=== PATIENT | female | born 1955 | race Caucasian/White ===

== ENCOUNTER → 2024-01-08 | Outpatient (CLI) | payer MEDICARE, MEDICAID, SELFPAY ==
[2024-01-08 17:05] LABS: Amphetamine Urine VISTA NEGATIVE (<1000 ng/mL); Barbiturate Urine VISTA POSITIVE (< 200 ng/mL); Benzodiazepine Urine VISTA NEGATIVE (< 200 ng/mL); Cocaine Urine VISTA NEGATIVE (< 300 ng/mL); Ecstacy Urine VISTA POSITIVE (< 500 ng/mL); Methadone Urine VISTA NEGATIVE (< 300 ng/mL); PCP Urine VISTA NEGATIVE (< 25 ng/mL); THC Urine VISTA NEGATIVE (< 50 ng/mL); Vista UDS pH Range 6
== END | disposition home or self-care (01) ==
PROVIDERS: PCP Family Medicine; Referring Provider Anesthesiology; Visit Provider Anesthesiology
DX: F11.20 Opioid dependence, uncomplicated (principal)
CPT/HCPCS: 80307

== ENCOUNTER → 2024-07-06 | Outpatient (CLI) | payer MEDICARE, SELFPAY ==
[2024-07-06 10:34] LABS: Absolute Lymphocyte Count 1.78 X10^3/uL (0.83-4.51); Absolute Neutrophil Count 3.8 X10^3/uL (2.0-7.7); Basophil# 0.05 X10^3/uL; Basophil% 0.8 % (0-1); Eosinophils% 3.1 % (0-5); Hematocrit 40.4 % (37-47); Hemoglobin 13.9 g/dL (12.0-15.0); Lymphocyte # 1.78 X10^3/ul (0.83-4.51); Lymphocyte % 27.5 % (19-41); Mean Corp Hgb Conc 34.4 g/dL (32-36); Mean Corpuscular Hgb 30.3 pg (27.0-32.0); Mean Corpuscular Volume 88.2 fL (81-99); Mean Platelet Vol. 8.6 fl (6.2-12.0); Monocyte# 0.58 X10^3/uL; NRBC Flagged by Analyzer 0 % (0-5); Neutrophil # 3.81 X10^3/uL (2.7-7.7); Neutrophil % 58.8 % (47-70); Platelet Count 265 K/mm3 (150-450); RBC Distribution Width CV 13.3 % (11.6-14.6); Red Blood Count 4.58 M/mm3 (4.2-5.4); White Blood Count 6.5 K/mm3 (4.4-11.0)
[2024-07-06 11:13] LABS: Anion Gap 10 (5-15); BUN 17 mg/dL (4-19); Calcium,Total 9.7 mg/dL (7.6-11.0); Carbon Dioxide 26.9 mmol/L (21.0-32.0); Chloride 102 mmol/L (98-108); Creatinine, Serum 0.99 mg/dL (0.70-1.20); EST Glomerular Filtration Rate 62 (>60); Glucose 101 mg/dL (70-99); HIV Nonreactive (Nonreactive); Magnesium 2.3 mg/dL (1.5-2.2); Potassium 3.9 mmol/L (3.3-5.1); Sodium Level 139 mmol/L (133-145)
[2024-07-07 05:07] LABS: Hepatitis A AB, Total Negative (Negative)
== END | disposition home or self-care (01) ==
LOC: PAVLAB 10:04
PROVIDERS: Anesthesiology; PCP Family Medicine; Referring Provider Orthopaedic Surgery Orthopaedic Surgery of the Spine; Visit Provider Orthopaedic Surgery Orthopaedic Surgery of the Spine
DX: Z01.818 Encounter for other preprocedural examination (principal)
CPT/HCPCS: 36415; 80048; 83735; 85025; 86703; 86708; 86850; 86900; 86901; 87635

== ENCOUNTER → 2024-07-07 | Outpatient (CLI) | payer MEDICARE, SELFPAY ==
[2024-07-07 09:51] LABS: Hepatitis B Surface Antibody Nonreactive; Hepatitis C Antibody Nonreactive (Nonreactive)
[2024-07-07 17:10] LABS: Xtra Tube EP Lab EXTRA TUBE
== END | disposition home or self-care (01) ==
LOC: PAVLAB 08:56
PROVIDERS: PCP Family Medicine; Referring Provider Orthopaedic Surgery Orthopaedic Surgery of the Spine; Visit Provider Orthopaedic Surgery Orthopaedic Surgery of the Spine
DX: Z01.818 Encounter for other preprocedural examination (principal)
CPT/HCPCS: 36415; 86706; 86803; 87081

== ENCOUNTER 2024-07-14 10:13 | Observation (INO) | payer MEDICARE, SELFPAY ==
--- NOTE | 2024-07-06 10:22 | EKG12_ITS ---
Test Reason : PRE OP Blood Pressure : */* mmHG Vent. Rate : 46 BPM Atrial Rate : 46 BPM P-R Int : 174 ms QRS Dur : 72 ms QT Int : 458 ms P-R-T Axes : 54 36 40 degrees QTcB Int : 400 ms Marked sinus bradycardia with Fusion complexes Abnormal ECG Confirmed by MARK LABOY, TRINA ([id number]), assignment editor DC ELENA ([id number]) on 07/07/2024 7:56:26 AM Referred By: Tesfaye Nam Confirmed By: TRINA FLORES MD
--- NOTE | 2024-07-06 18:26 | PAT.ANESEVAL ---
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 When Was Last Pacemaker Check QUESTION #4 FULL TEXT: You/Your Family Experience fever (hyperthermia) with Anesthesia Last Oral Intake Last Oral intake: Last Oral Intake NPO since Meds taken in AM with sips of water? Meds patient instructed to take am of surgery PONV PONV - call center operations manager: PONV - call center operations manager Female Yes 06/21/24 12:39 HX of Motion Sickness No 06/21/24 12:39 HX of N/V After Surgery Yes 06/21/24 12:39 Non-Smoker Yes 06/21/24 12:39 Duration of Surgery greater Yes 06/21/24 12:39 than 60 minutes Number of Risk Factors 4 06/21/24 12:39 PONV Score Severe Risk 06/21/24 12:39 Height & Weight Height & Weight: Anesthesia: Height & Weight Height 5 ft 4 in 05/14/24 10:01 Respiratory Assessment Respiratory Assessment - call center operations manager: Respiratory Tract Infection Hx - call center operations manager Hx Respiratory Tract Infection No 06/21/24 12:39 STOP Sleep Apnea STOP Sleep Apnea - call center operations manager: STOP Sleep Apnea - call center operations manager Hx Hypertension Yes 06/21/24 12:39 Hx Sleep Apnea No 06/21/24 12:39 CPAP BIPAP Do you snore loudly (louder Yes 06/21/24 12:39 than talking or can be heard Do you often feel tired/ No 06/21/24 12:39 fatigued/ sleepy during daytime? Has anyone observed you stop No 06/21/24 12:39 breathing during sleep? STOP Results Positive 06/21/24 12:39 QUESTION #5 FULL TEXT : Do you snore loudly (louder than talking or can be heard through closed doors)? 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 Specify any problems Hx of Preganancy in last 3 No 06/21/24 12:39 Months Nurse Filling Out Transfusion JZOLLINGE 06/21/24 12:39 & Questions: Date: 06/21/24 06/21/24 12:39 Time: 12:43 06/21/24 12:39 Patient unable to answer at this time (ie. confused, unrespo /Reproduction History /Reproductive History - call center operations manager: /Reproductive Hx- call center operations manager Hx Now No 06/21/24 12:39 Gestational Age (in weeks): EDC: Hx Hx Para Hx Section SAB No 06/21/24 12:39 [facility] Medical History Wears glasses High cholesterol Non-smoker Arthritis Restless leg GERD (gastroesophageal reflux disease) Hypertension Depression Chronic pain Home Medications ?Medication ?Instructions ?Recorded ?Last Taken ?Type bupropion HCl 150 mg 24 hr tablet, 150 mg PO QDAY 01/26/24 Unknown History extended release cholecalciferol (vitamin D3) 25 25 mcg PO QDAY 01/26/24 Unknown History mcg (1,000 unit) capsule escitalopram oxalate 20 mg tablet 20 mg PO QDAY 01/26/24 Unknown History hydrochlorothiazide 25 mg tablet 25 mg PO QDAY 01/26/24 Unknown History oxybutynin chloride 5 mg tablet 2.5 mg PO BID 01/26/24 Unknown History pantoprazole 40 mg tablet,delayed 40 mg PO QDAY 01/26/24 Unknown History release ropinirole 0.25 mg tablet 0.25 mg PO QDAY 01/26/24 Unknown History trazodone 100 mg tablet 100 mg PO QHS 01/26/24 Unknown History vitamin B complex 1 cap PO QDAY 01/26/24 Unknown History losartan 100 mg tablet 100 mg PO QAM 05/14/24 Unknown History rosuvastatin 10 mg tablet 10 mg PO QPM 05/14/24 Unknown History erythromycin 5 mg/gram (0.5 %) eye 1 applic ophthalmic (eye) BID 06/21/24 Unknown History ointment buprenorphine HCl 75 mcg buccal 150 mcg buccal Q12H 06/25/24 Unknown History film (Belbuca) Allergy/AdvReac Type Severity Reaction Status Date / Time acetaminophen (From Vicodin) Allergy Hives, Verified 06/25/24 10:04 itching, NV codeine Allergy Hives, NV, Verified 06/25/24 10:04 itching hydrocodone (From Vicodin) Allergy Hives, Verified 06/25/24 10:04 itching, NV aspirin AdvReac Upset Verified 06/25/24 10:04 Stomach oxycodone AdvReac Addiction Verified 06/25/24 10:04 Family History Other Cancer Heart disease Hypertension Surgical History History of neck surgery History of carpal tunnel repair H/O left wrist surgery Social History current occupational status: retired current occupation: Retired. [employer]. Smoking Status: Never smoker alcohol intake: never substance use type: does not use Audit: Pertinent Findings Pertinent Findings EKG Perinent findings: 07/19/2022. Normal sinus rhythm. Stress test pertinent findings: Patient's stress test was equivocal since it did not reach target heart rate. Consult pertinent findings: 07/19/2022. 1. 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 Patient walks 3 miles a day. Her chest pain has improved. Shortness of breath only while climbing stairs now. Stress test was equivocal, having never reached target heart rate. However consider the patient exercised every day without symptoms we will consider a normal stress test. 2. Hypertension?controlled. Recommendation Anesthesia Recommendation Anesthesia recommendation: OPTIMIZED for anesthesia
[2024-07-14] VITALS (19 sets, daily range): BP systolic 98–138; BP diastolic 45–82; PULSE 43–82; RESP 9–18; TEMP 36.1–36.9; O2SAT 90–99; BMI 32.8
[2024-07-14 06:24] LABS: Bedside Glucose 81 mg/dL (74-106)
--- NOTE | 2024-07-14 06:30 | RAD_ITS ---
PROCEDURE: CERV SPINE 2 OR 3 VIEWS 07/14/2024 REASON FOR EXAM: ANTERIOR FUSION C4-5, POSS HARDWARE REMOVAL TECHNIQUE: Fluoro was provided COMPARISON: None FINDINGS: 10.9 seconds, 8 images, 3.23 mGy RAD/Cerv Spine 2 or 3 Views IMPRESSION: Fluoro was provided. Reading Location: [facility]
[2024-07-14] MEDS: Magnesium 1 GM over 15 mins IV (06:56)
[2024-07-14] MEDS: Acetaminophen 500 MG Tablet 1000 MG PO ×3 (06:56→22:20)
[2024-07-14] MEDS: Lactated Ringers 1,000 ML 15 ML IV (06:59)
--- NOTE | 2024-07-14 07:21 | PCM.PRE.AN2 ---
ASA Classification* ASA Classification ASA Classification: 2 Assessment & Plan Anesthesia* Anesthesia Assessment Anesthesia Assessment: Discussed sedation and/or anesthesia options, risks, benefits, and alternatives with patient/parents/legal guardian/POA. Questions invited. The patient/parents/legal guardian/POA seems to understand and agrees to proceed with anesthesia plan. Reviewed the physical assessment, medical history, allergy history and patient home medications list prior to surgery/procedure/anesthetic and documented any changes. Performed airway and anesthesia risk assessments. Anesthesia Type Anesthesia Type: General Anesthesia Focused Assessment* Temperature: 98.4 F Pulse Rate: 43 Blood Pressure: 106/58 Respiratory Rate: 16 Pulse Ox: 98 Airway Assessment Mouth opens: >3 cm Mallampati Score: II Focused Labs Anesthesia Preop lab: CBC WBC 6.5 K/mm3 (4.4-11.0) 07/06/24 10:12 07/06/24 RBC 4.58 M/mm3 (4.2-5.4) 07/06/24 10:12 07/06/24 Hgb 13.9 g/dL (12.0-15.0) 07/06/24 10:12 07/06/24 Hct 40.4 % (37-47) 07/06/24 10:12 07/06/24 Plt Count 265 K/mm3 (150-450) 07/06/24 10:12 07/06/24 CHEMISTRY Potassium 3.9 mmol/L (3.3-5.1) 07/06/24 10:12 07/06/24 Sodium 139 mmol/L (133-145) 07/06/24 10:12 07/06/24 Magnesium 2.3 mg/dL (1.5-2.2) H 07/06/24 10:12 07/06/24 BUN 17 mg/dL (4-19) 07/06/24 10:12 07/06/24 Creatinine 0.99 mg/dL (0.70-1.20) 07/06/24 10:12 07/06/24 Glucose 101 mg/dL (70-99) H 07/06/24 10:12 07/06/24 POC Glucose 81 mg/dL (74-106) 07/14/24 06:06 07/14/24 COAG Pre-Assessment Diagnosis/Proposed Procedure Planned Operative Procedure(s): Anterior cervical disc fusion C4-5, possible removal of hardware Anesthesia History 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 When Was Last Pacemaker Check QUESTION #4 FULL TEXT: You/Your Family Experience fever (hyperthermia) with Anesthesia Last Oral Intake Last Oral intake: Last Oral Intake NPO since 05:00 07/14/24 06:19 Meds taken in AM with sips of Yes 07/14/24 06:19 water? Meds patient instructed to take am of surgery PONV PONV - paper and prints restorer: PONV - paper and prints restorer Female Yes 06/21/24 12:39 HX of Motion Sickness No 06/21/24 12:39 HX of N/V After Surgery Yes 06/21/24 12:39 Non-Smoker Yes 06/21/24 12:39 Duration of Surgery greater Yes 06/21/24 12:39 than 60 minutes Number of Risk Factors 4 06/21/24 12:39 PONV Score Severe Risk 06/21/24 12:39 Height & Weight Height & Weight: Anesthesia: Height & Weight Height 5 ft 4 in 07/14/24 06:19 Weight: 86.9 kg 07/14/24 06:19 Body Mass Index (BMI) 32.8 07/14/24 06:19 Respiratory Assessment Respiratory Assessment - paper and prints restorer: Respiratory Tract Infection Hx - paper and prints restorer Hx Respiratory Tract Infection No 06/21/24 12:39 STOP Sleep Apnea STOP Sleep Apnea - paper and prints restorer: STOP Sleep Apnea - paper and prints restorer Hx Hypertension Yes 06/21/24 12:39 Hx Sleep Apnea No 06/21/24 12:39 CPAP BIPAP Do you snore loudly (louder Yes 06/21/24 12:39 than talking or can be heard Do you often feel tired/ No 06/21/24 12:39 fatigued/ sleepy during daytime? Has anyone observed you stop No 06/21/24 12:39 breathing during sleep? STOP Results Positive 06/21/24 12:39 QUESTION #5 FULL TEXT : Do you snore loudly (louder than talking or can be heard through closed doors)? 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 Specify any problems Hx of Preganancy in last 3 No 06/21/24 12:39 Months Nurse Filling Out Transfusion JZOLLINGE 06/21/24 12:39 & Questions: Date: 06/21/24 06/21/24 12:39 Time: 12:43 06/21/24 12:39 Patient unable to answer at this time (ie. confused, unrespo /Reproduction History /Reproductive History - paper and prints restorer: /Reproductive Hx- paper and prints restorer Hx Now No 06/21/24 12:39 Gestational Age (in weeks): EDC: Hx Hx Para Hx Section SAB No 06/21/24 12:39 Active Medications Active Medications: Current Medications Generic Name Dose Route Start Last Admin Trade Name Freq PRN Reason Stop Dose Admin Acetaminophen 1,000 mg 07/14/24 07:30 07/14/24 06:56 Acetaminophen 500 Mg Tablet PO 07/14/24 07:31 1,000 mg X1 ONE Administration Dexamethasone Sodium Phosphate 8 mg 07/14/24 07:30 Dexamethasone 10 Mg/Ml Vial IV 07/14/24 07:31 X1 ONE Dexamethasone Sodium Phosphate 4 mg 07/14/24 07:30 Dexamethasone 4 Mg/Ml Vial IV 07/14/24 07:31 X1 ONE Cefazolin Sodium 2 gm/ Sodium 110 mls @ 150 mls/hr 07/14/24 07:30 Chloride IV 07/14/24 08:13 PREOP ONE Tranexamic Acid 1,000 mg/ 110 mls @ 440 mls/hr 07/14/24 07:30 Sodium Chloride IV 07/14/24 07:44 X1 ONE Tranexamic Acid 1,000 mg/ 110 mls @ 440 mls/hr 07/14/24 07:30 Sodium Chloride IV 07/14/24 07:44 X1 ONE Magnesium Sulfate 1 gm/ 102 mls @ 408 mls/hr 07/14/24 07:30 07/14/24 06:56 Dextrose IV 07/14/24 07:44 408 mls/hr X1 ONE Administration Lactated Ringer's 1,000 mls @ 15 mls/hr 07/14/24 07:00 07/14/24 06:59 IV 15 mls/hr .Q48H SHAE Administration Insulin Human Lispro 1 - 6 unit 07/14/24 07:30 Insulin Lispro 100 Unit/Ml Insuln.Pen SC Q4H PRN PRN BG>/= 180, SEE PROTOCOL Protocol PFSH Medical History Wears glasses High cholesterol Non-smoker Arthritis Restless leg GERD (gastroesophageal reflux disease) Hypertension Depression Chronic pain Home Medications ?Medication ?Instructions ?Recorded ?Last Taken ?Type bupropion HCl 150 mg 24 hr tablet, 150 mg PO QDAY 01/26/24 07/14/24 History extended release cholecalciferol (vitamin D3) 25 25 mcg PO QDAY 01/26/24 Unknown History mcg (1,000 unit) capsule escitalopram oxalate 20 mg tablet 20 mg PO QDAY 01/26/24 Unknown History hydrochlorothiazide 25 mg tablet 25 mg PO QDAY 01/26/24 Unknown History oxybutynin chloride 5 mg tablet 2.5 mg PO BID 01/26/24 07/14/24 History pantoprazole 40 mg tablet,delayed 40 mg PO QDAY 01/26/24 07/14/24 History release ropinirole 0.25 mg tablet 0.25 mg PO QDAY 01/26/24 07/13/24 History trazodone 100 mg tablet 100 mg PO QHS 01/26/24 Unknown History vitamin B complex 1 cap PO QDAY 01/26/24 Unknown History losartan 100 mg tablet 100 mg PO QAM 05/14/24 07/14/24 History rosuvastatin 10 mg tablet 10 mg PO QPM 05/14/24 Unknown History erythromycin 5 mg/gram (0.5 %) eye 1 applic ophthalmic (eye) BID 06/21/24 Unknown History ointment buprenorphine HCl 75 mcg buccal 150 mcg buccal Q12H 06/25/24 07/13/24 History film (Belbuca) Allergy/AdvReac Type Severity Reaction Status Date / Time acetaminophen (From Vicodin) Allergy Hives, Verified 07/14/24 06:16 itching, NV codeine Allergy Hives, NV, Verified 07/14/24 06:16 itching hydrocodone (From Vicodin) Allergy Hives, Verified 07/14/24 06:16 itching, NV aspirin AdvReac Upset Verified 07/14/24 06:16 Stomach oxycodone AdvReac Addiction Verified 07/14/24 06:16 Family History Other Cancer Heart disease Hypertension Surgical History History of neck surgery History of carpal tunnel repair H/O left wrist surgery Social History current occupational status: retired current occupation: Retired. [employer]. Smoking Status: Former smoker alcohol intake: never substance use type: does not use Review of Systems (Anesthesia) ROS Narrative System reviewed and no additional complaints, except as documented.
--- NOTE | 2024-07-14 07:25 | HP.PCM_ITS ---
History and Physical Date of Admission: 07/14/24 MR#: [id number] Acct: [id number] Name: ITZEL VILLANUEVA Rep #: [id number] : 1955 Provider: Dr. Tesfaye Nam MD Age/Sex: 69/F [place] [facility] [place] Status: Signed Intake Vital Signs 05/14/2509:01 Height 5 ft 4 in Weight: 185 lb BMI 31.7 Intake Visit Reasons: cervical spine Chief Complaint: cervical spine pre-op Accompanied by: Self Is patient in pain?: Yes Pain scale (1-10): 8 Allergies acetaminophen (From Vicodin) Allergy (Verified 06/25/24 10:04) Hives, itching, NVcodeine Allergy (Verified 06/25/24 10:04) Hives, NV, itchinghydrocodone (From Vicodin) Allergy (Verified 06/25/24 10:04) Hives, itching, NVaspirin Adverse Reaction (Verified 06/25/24 10:04) Upset Stomachoxycodone Adverse Reaction (Verified 06/25/24 10:04) Addiction Medications ?Medication ?Instructions ?Recorded ?Confirmed ?Type bupropion HCl 150 mg 24 hr tablet, 150 mg PO QDAY 01/26/24 06/25/24 History extended release cholecalciferol (vitamin D3) 25 25 mcg PO QDAY 01/26/24 06/25/24 History mcg (1,000 unit) capsule escitalopram oxalate 20 mg tablet 20 mg PO QDAY 01/26/24 06/25/24 History hydrochlorothiazide 25 mg tablet 25 mg PO QDAY 01/26/24 06/25/24 History oxybutynin chloride 5 mg tablet 2.5 mg PO BID 01/26/24 06/25/24 History pantoprazole 40 mg tablet,delayed 40 mg PO QDAY 01/26/24 06/25/24 History release ropinirole 0.25 mg tablet 0.25 mg PO QDAY 01/26/24 06/25/24 Histor y trazodone 100 mg tablet 100 mg PO QHS 01/26/24 06/25/24 History vitamin B complex 1 cap PO QDAY 01/26/24 06/25/24 History losartan 100 mg tablet 100 mg PO QAM 05/14/24 06/25/24 History rosuvastatin 10 mg tablet 10 mg PO QPM 05/14/24 06/25/24 History erythromycin 5 mg/gram (0.5 %) eye 1 applic ophthalmic (eye) BID 06/21/24 06/25/24 History ointment buprenorphine HCl 75 mcg buccal 150 mcg buccal Q12H 06/25/24 06/25/24 Hi story film (Belbuca) Have you fallen in the past year?: Yes (June 2024) PFSH Medical History Wears glasses High cholesterol Non-smoker Arthritis Restless leg GERD (gastroesophageal reflux disease) Hypertension Depression Chronic pain Surgical History History of neck surgery History of carpal tunnel repair H/O left wrist surgery Family History Other Cancer Heart disease Hypertension Social History current occupational status: retired current occupation: Retired. [employer]. Smoking Status: Never smoker alcohol intake: never substance use type: does not use HPI cervical spine Details: This documentation accurately reflects the service provided and the decisions made by me, Dr. Tesfaye Nam MD 06/25/24 [id number]. Part of today?s visit was documented by Arlene Day ATC, acting as scribe. ITZEL VILLANUEVA is a 69 year old F here today for cervical spine pre-op for anterior cervical disc fusion C4-5, possible removal of hardware DOS 07/14/2024. Patient rates her pain a 8/10 today and states the pain is getting worse every day. She states she used to have good days and she doesn't have those anymore at all. 05/14/24: ITZEL VILLANUEVA is a 69 year old F here today for cervical spine pain. she would like to discuss surgical options today. Pt. states she has fallen 3 x in the past 2 weeks. She states her SANCHEZ's have become worse. She c/o pain radiating down her left arm to her elbow as well as right. 03/26/24: ITZEL VILLANUEVA is a 68 year old F here today to discuss postponing cervical spine surgery. Pt. states she is no longer having neck pain because the Belbuca is so effective. She is still experiencing some SANCHEZ's but they have also improved. HPI from 02/11/24: ITZEL VILLANUEVA is a 68 year old F here today for MRI review of her cervical spine. She denies any changes. She is now taking buprenorphine for pain. She did start PT today at in [place] and is going to be going 2 times a week for 4 weeks. Says that she feels her balance has continued to decrease. HPI from 01/26/24: ITZEL VILLANUEVA is a 68 year old F here today for posterior neck pain that radiates down right shoulder to elbow. Cervical fusion c5-c7 2 years ago with pain returning about 8-9 months ago. Weakness right arm and hands, will drop things. Says she has pain that goes down her arm to her elbow. Right worse than left. She is right hand dominant. She does get cervical migraines. Unsteady balance or staggering at times which has worsened over the last 2 months, however does she she was unsteady prior to her surgery. Does not tolerate being in same position for more than an hour d/t pain and stiffness or locking up. epidural injection given 01/16/[address] Nunez, upcoming f/u later this week. PT at [facility] in [place] about 5 months ago that helped at first but started to exacerbate pain. MRI cervical and thoracic spine earlier this year at [facility] in [place]. Oxybutynin helpful with bladder control. Occasional bowel incontinence starting about a year ago, attributes to possible IBS. No falls, no diabetes, no blood thinners. Ortho Exam General General: Yes no acute distress Neurologic: Yes alert and Yes oriented x3 Spine SPINE TESTING CERVICAL THORACIC LUMBAR Musculoskeletal Strength 0=absent - 5=normal Details: Physical examination shows a well healed left sided ACDF surgical scar. Neurological exam of the upper extremities shows 5x5 power, pain with shoulder movements. Normal sensations across all dermatomes. Brisk lower extremity reflexes. No midline or paraspinal tenderness. Romberg's positive. Tandem gait shows severe imbalance. 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 Again reviewed prior xrays which shows prior C5-7 ACDF hardware in good position and loss of normal cervical lordosis, with reversal and kyphosis apex at C4-5 disc. C4-5 shows severe disc degeneration w ith osteophytes and mild instability flexion-extension views. 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 Again went through all imaging findings in detail. Patient has recurrence of significant pain along with headaches and also has new onset left upper extremity radiation going up to the elbow which is new since last seen by me. Patient has had epidural injections, but feels that her balance is worsening with time. She has significant myelopathy along with radiculopathy. Again discussed treatment options. Considering progressive nature of myelopathy, recommend surgical intervention. C4-5 ACDF with possible removal of previous hardware was discussed in detail. All risk benefits and alternatives were discussed. The risks include but are not limited to infection, bleeding, injury to nerves and vessels, hematoma formation, need for further surgery, pseudoarthrosis, hardware failure, adjacent segment degeneration, dysphagia, dysphonia, visceral injury, recurrent laryngeal nerve injury, Ricardo syndrome, DVT, pulm embolism, pneumonia, atelectasis, cardiopulmonary event. Patient understands and agrees to proceed with surgery. Consent was signed.
[2024-07-14] MEDS: Cefazolin 2 GM in 0.9% Normal Saline (100mL Bag) 100 ML IV ×3 (07:53→22:56)
[2024-07-14] MEDS: dexAMETHasone 10 MG/ML Vial 8 MG IV (07:54)
[2024-07-14] MEDS: TRANEXAMIC ACID 1,000 MG in 0.9% Normal Saline (100mL Bag) 100 ML 440 MG IV ×2 (08:03→09:39)
--- NOTE | 2024-07-14 10:17 | OP.PCM_ITS ---
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: Yes Bath Design Sales Consultant: Suni Kang Tasks completed by accounting manager assistant controller: Closing, Removing tissue, Implanting device, Hemostasis: Electrocautery and Retracting Type of Anesthesia: General RN Documented Start/Stop Times: Operation Date: 07/14/24 07:30 Case Time Into Pre-Op 07/14/24 05:45 Out of Pre-Op 07/14/24 07:34 Anesthesia Start 07/14/24 07:38 Into Room 07/14/24 07:38 Procedure Start 07/14/24 08:13 Procedure End 07/14/24 10:05 Procedure Start Time: 08:13 Procedure Stop Time: 10:05 Select all DRAINS/GRAFTS/IMPLANTS that apply: Drains, Graft and Implanted device Estimated Blood Loss: 20 cc Specimen collected: No Description of surgery: Preoperative diagnosis: C4-5 spondylolisthesis, disc degeneration with stenosis, radiculomyelopathy, prior C5-7 ACDF Postoperative diagnosis: Same Name of procedure: C4-5 anterior cervical discectomy and fusion with plate instrumentation - Anterior cervical fusion C4-5, CPT code 80041 - Anterior plate instrumentation C4-5, CPT code 05460/59 -C4-5 structural allograft bone with DBX, CPT code 89417 Attending surgeon: Tesfaye Nam M.D. Anesthesia: Gen. endotracheal Estimated blood loss: [] mL Complications: None Instrumentation used: Medtronic [place] Elite plate, LASR corticocancellous block Indications: The patient is a pleasant [] who presented with []. MRI showed []. In order to halt the progression of myelopathy, the patient requested surgical treatment. All risks and benefits of the procedure were explained to the patient. The risks include but are not limited to infection, bleeding, injury to nerves and vessels, vertebral artery injury, spinal cord injury, paralysis, vocal cord paralysis, injury to esophagus, pseudoarthrosis, need for further procedures, adjacent segment degeneration. Procedure: The patient was identified in the preoperative suite using unique patient identifiers. Skin was marked consent was taken and all questions were answered. The patient was then brought back to the operative room and a timeout was performed. General endotracheal anesthesia was given. Intraoperative neuro monitoring leads were applied. The patient was carefully positioned supine on a regular OR table. A lateral view with a C-arm was done to identify the level and to define the incision. The anterior neck was then prepped and draped in the usual fashion. A final timeout was then performed. A transverse skin incision was taken to the left of midline. Subcutaneous tissue was then divided with Bovie. Platysma was identified and cut along the incision with scissors. The fascial interval between the sternocleidomastoid and the larynx was developed. Omohyoid was identified and retracted. The esophagus with the larynx was retracted medially to reach the prevertebral fascia. Marker x-ray was performed with bent spinal needle and disc space and levels were confirmed. Longus coli muscle was elevated on both sides at and above and below [] discs. Self-retaining retractors were then placed. A long handle knife was then used to perform annulotomy at []. Disc fragments were removed with the pituitary. Jackson pins were placed in [] for disc distraction. Curettes and bur was utilized to remove cartilage from the endplates. Discectomy was performed laterally up to the uncovertebral joints. Posterior osteophytes were thinned down with the bur and adequate decompression in the central and foraminal areas were performed and PLL was thinned out. Once the disc space was prepared, trials of various sizes were utilized. Thorough irrigation was given. [] mm LASR cortical cancellous allograft bone large footprint was then fashioned in such a way that concavities were burred out inferiorly and superiorly and half cc of DBX (demineralized bone matrix) was squeezed into the cancellous portion. The graft was then inserted into the [] disc space. The retractors were then repositioned and the procedure was repeated for [] discs with complete discectomy. Graft sizes were [] mm at with large footprint at []. The grafts were found to be in good apposition with good pullout strength. A [] mm Medtronic [place] Elite plate was then fixed to [] with [] mm screws. A lateral x-ray was then taken to check the length of the screws. Both AP and lateral x-rays showed good positioning of plate and screws. The locking mechanism over the screw heads was then turned. Thorough irrigation was again given. Hemostasis was achieved. A [] drain was then inserted. Closure was done with 3-0 Vicryl for the platysma and subcutaneous tissue layers and 4-0 Monocryl for the skin. Closure was done around the drain. Steri-Strips were applied and dressing was done with 4 x 4 gauze and Tegaderm. A cervical collar was then applied. The patient was then woken up from anesthesia extubated and taken to PACU in stable condition. From here, the patient will be transitioned to the floor. Intraoperative neuro monitoring was performed throughout this procedure. Motor evoked potentials were run periodically. All potentials remained at baseline throughout the procedure. I was present for the entire surgery and performed the surgery myself.
--- NOTE | 2024-07-14 10:17 | PCM.OPRPT ---
Procedures Musculoskeletal [id number]: Other Procedure See Report Operative Report (Standard) Operative Information Date of Procedure: 07/14/24 Pre-Operative Diagnosis: C4-5 spondylolisthesis, stenosis, radiculomyelopathy, prior C5-7 fusion Post-Operative Diagnosis: Same Surgery/Procedure Performed: C4-5 ACDF, removal of hardware, exploration of fusion slip cover operator: Yes Shipping And Receiving Operator: Suni Kang Tasks completed by regional administrative assistant: Closing, Removing tissue, Implanting device, Hemostasis: Electrocautery and Retracting Type of Anesthesia: General RN Documented Start/Stop Times: Operation Date: 07/14/24 07:30 Case Time Into Pre-Op 07/14/24 05:45 Out of Pre-Op 07/14/24 07:34 Anesthesia Start 07/14/24 07:38 Into Room 07/14/24 07:38 Procedure Start 07/14/24 08:13 Procedure End 07/14/24 10:05 Procedure Start Time: 08:13 Procedure Stop Time: 10:05 Select all DRAINS/GRAFTS/IMPLANTS that apply: Drains Drain details: Shahzad , Graft Graft details: Structural allograft cortical cancellous strut, DBX and Implanted device Implanted device details: Medtronic [place] Elite plate instrumentation Estimated Blood Loss: 20 cc Specimen collected: No Description of surgery: Preoperative diagnosis: C4-5 spondylolisthesis, disc degeneration with stenosis, radiculomyelopathy, prior C5-7 ACDF Postoperative diagnosis: Same Name of procedure: C4-5 anterior cervical discectomy and fusion with plate instrumentation - Anterior cervical fusion C4-5, CPT code 95365 - Anterior plate instrumentation C4-5, CPT code 56368/59 - Removal of anterior plate instrumentation C5-7, CPT code 03917 -Exploration of anterior C5-7 fusion, CPT code 59996 -C4-5 structural allograft bone with DBX, CPT code 64975 Attending surgeon: Tesfaye Nam M.D. Anesthesia: Gen. endotracheal Estimated blood loss: 30 mL Complications: None Instrumentation used: Medtronic [place] Elite plate, LASR corticocancellous block Indications: The patient is a pleasant 69-year-old lady who presented with neck pain, progressive difficulty with dexterity and balance. Imaging showed prior C5-7 ACDF with plate instrumentation, C4-5 adjacent segment degeneration with spondylolisthesis, disc degeneration, central stenosis with cord indentation without cord signal changes. In order to halt the progression of myelopathy, the patient requested surgical treatment. All risks and benefits of the procedure were explained to the patient. The risks include but are not limited to infection, bleeding, injury to nerves and vessels, vertebral artery injury, spinal cord injury, paralysis, vocal cord paralysis, injury to esophagus, pseudoarthrosis, need for further procedures, adjacent segment degeneration. ENT consult confirmed that both vocal cords are mobile due to history of prior ACDF surgery. Procedure: The patient was identified in the preoperative suite using unique patient identifiers. Skin was marked consent was taken and all questions were answered. The patient was then brought back to the operative room and a timeout was performed. General endotracheal anesthesia was given. Intraoperative neuro monitoring leads were applied. The patient was carefully positioned supine on a regular OR table. A lateral view with a C-arm was done to identify the level and to define the incision. The anterior neck was then prepped and draped in the usual fashion. A final timeout was then performed. A transverse skin incision was taken to the right of midline, as previous surgery was done of the left. Subcutaneous tissue was then divided with Bovie. Platysma was identified and cut along the incision with scissors. The fascial interval between the sternocleidomastoid and the larynx was developed. Omohyoid was identified and retracted. The esophagus with the larynx was retracted medially to reach the prevertebral fascia. Superior edge of the plate was covered with bone, and a bent spinal needle was placed into the area felt to be the C4-5 disc. Marker x-ray was performed with bent spinal needle and disc space and levels were confirmed. Longus coli muscle was elevated on both sides at and above and below C4-7 discs around the plate. Significant prevertebral scarring was noticed over the plate. Bur had to be utilized to remove the bone overgrowth over the superior aspect of the plate. Locking mechanism screw was turned to unlock, and all 6 screws were removed with appropriate instrumentation. The plate was then pried loose with the help of Vazquez. The plate was then removed. The fusion at C5-6 and C6-7 was explored and found to be adequate. Self-retaining retractors were then placed. A long handle knife was then used to perform annulotomy at C4-5. Disc fragments were removed with the pituitary. [place] pins were placed in C4 and C5 for disc distraction. Curettes and bur was utilized to remove cartilage from the endplates. Discectomy was performed laterally up to the uncovertebral joints. Posterior osteophytes were thinned down with the bur and adequate decompression in the central and foraminal areas were performed and PLL was thinned out. Once the disc space was prepared, trials of various sizes were utilized. Thorough irrigation was given. 7 mm LASR cortical cancellous allograft bone large footprint was then fashioned in such a way that concavities were burred out inferiorly and superiorly and half cc of DBX (demineralized bone matrix) was squeezed into the cancellous portion. The graft was then inserted into the C4-5 disc space. The graft was found to be in good apposition with good pullout strength. A 23 mm Medtronic [place] Elite plate was then fixed to C4-5 with 15 mm screws. Decision was made not to plate over the previously fused levels as adequate fusion was noticed at those levels. A lateral x-ray was then taken to check the length of the screws. Both AP and lateral x-rays showed good positioning of plate and screws. The locking mechanism over the screw heads was then turned. Thorough irrigation was again given. Hemostasis was achieved. A Shahzad drain was then inserted. Closure was done with 3-0 Vicryl for the platysma and subcutaneous tissue layers and 4-0 Monocryl for the skin. Closure was done around the drain. Steri-Strips were applied and dressing was done with 4 x 4 gauze and Tegaderm. A cervical collar was then applied. The patient was then woken up from anesthesia extubated and taken to PACU in stable condition. From here, the patient will be transitioned to the floor. Intraoperative neuro monitoring was performed throughout this procedure. Motor evoked potentials were run periodically. All potentials remained at baseline throughout the procedure. I was present for the entire surgery and performed the surgery myself. Relations Coordinator Suni Kang PA-C. My physician cafeteria assistant was a vital part of this case. They were important in appropriate retraction during the case, and protection of soft tissues during the procedure. Their intimate knowledge of the case and my steps aided in safe and expedient completion of the procedure as well as appropriate position of the patient during the surgery. They were also vital in assisting with closure under my direct supervision. Surgical Findings: See operative note Complications Complications: No
--- NOTE | 2024-07-14 10:29 | PCM.POST.ANE ---
Anesthesia: Postop Eval I Current Vital Signs Temperature: 97.2 F Pulse Rate: 80 Blood Pressure: 110/82 Respiratory Rate: 14 Pulse Ox: 92 Oxygen Delivery Method: Venturi Mask Oxygen Flow Rate (L/min): 6 Assessment Airway patent: Yes Spontaneous unlabored respirations: Yes Mental status: Awake and Calm nausea: No Vomiting: No Anesthesia Complication: No Fluid Hydration Crystalloid volume administer (ml): 1,700 Total IV fluid infused: 1,700 Progress Note Anesthesia document: Postop Eval 1 completed: Yes
--- NOTE | 2024-07-14 11:08 | POSTOPAN2_ITS ---
Anesthesia Postop Eval I Sum Postop Eval Completion status Anesthesia document: Postop Eval 1 completed: Yes Anesthesia Postop Eval I Summary Anesthesia Postop Eval I Summary: Anesthesia Postop Eval I: Assessment Summary Airway patent Yes 07/14/24 10:30 AERIAL [email or web address] Spontaneous unlabored Yes 07/14/24 10:30 AERIAL [email or web address].MDOT respirations Mental status Awake,Calm 07/14/24 10:30 AERIAL [email or web address] nausea No 07/14/24 10:30 AERIAL [email or web address] Vomiting No 07/14/24 10:30 AERIAL [email or web address] Anesthesia Postop Eval I: Fluid Summary Crystalloid volume administer 1,700 07/14/24 10:30 AERIAL [email or web address].MDOT (ml) Colloids volume administered ( ml) Blood Product volume administered (ml) Total IV fluid infused 1,700 07/14/24 10:30 AERIAL [email or web address] Anesthesia Postop Eval I: Summary Notes Anesthesia Complication No 07/14/24 10:30 AERIAL [email or web address] Anesthesia Complication Comment: Post-operative progress note Anesthesia: Postop Eval II Evaluation Mental status: Awake Pain Level: 0 nausea: No Vomiting: No
--- NOTE | 2024-07-14 11:08 | PCM.POSTANE2 ---
Anesthesia Postop Eval I Sum Postop Eval Completion status Anesthesia document: Postop Eval 1 completed: Yes Anesthesia Postop Eval I Summary Anesthesia Postop Eval I Summary: Anesthesia Postop Eval I: Assessment Summary Airway patent Yes 07/14/24 10:30 PRISON [email or web address] Spontaneous unlabored Yes 07/14/24 10:30 PRISON [email or web address] respirations Mental status Awake,Calm 07/14/24 10:30 PRISON [email or web address] nausea No 07/14/24 10:30 PRISON GUARD.MDOT Vomiting No 07/14/24 10:30 PRISON [email or web address] Anesthesia Postop Eval I: Fluid Summary Crystalloid volume administer 1,700 07/14/24 10:30 PRISON GUARD.MDOT (ml) Colloids volume administered ( ml) Blood Product volume administered (ml) Total IV fluid infused 1,700 07/14/24 10:30 PRISON [email or web address] Anesthesia Postop Eval I: Summary Notes Anesthesia Complication No 07/14/24 10:30 PRISON GUARD.MDOT Anesthesia Complication Comment: Post-operative progress note Anesthesia: Postop Eval II Evaluation Mental status: Awake Pain Level: 0 nausea: No Vomiting: No
[2024-07-14] MEDS: dexAMETHasone 4 MG/ML Vial IV ×2 (12:33→17:50)
[2024-07-14] MEDS: Methocarbamol 500 MG Tablet 1000 MG PO ×3 (14:32→22:19)
[2024-07-14] MEDS: Ketorolac 15 MG/ML Vial IV ×2 (14:32→20:44)
--- NOTE | 2024-07-14 16:10 | PCM.PN.HOSP ---
Subjective Subjective 69-year-old female presents to the hospital for an elective C4-5 ACDF for C4-5 spondylolisthesis, stenosis, radiculomyelopathy with a history of a prior C5-7 fusion. Postoperatively she is doing well, I do expect that we will be able to wean her oxygen fairly quickly, though she still appears to be somewhat drowsy from anesthesia. I do expect that throughout the evening her blood pressures will also climb as the anesthesia wears off. Objective Data Objective Data Vital Signs: Vital Signs Temp Pulse Resp BP Pulse Ox O2 Del Method O2 Flow Rate 98.2 F 70 18 98/48 L 95 Nasal Cannula 4 07/14/24 14:21 07/14/24 14:21 07/14/24 14:21 07/14/24 14:21 07/14/24 14:21 07/14/24 14:21 07/14/24 14:21 Oxygen Flow Rate (L/min) 4 Oxygen Delivery Method Nasal Cannula Weight: 191 lb 9.307 oz Body Mass Index (BMI) 32.8 Intake & Output: Intake and Output for Last 24 Hours 07/13/24 07/14/24 07/15/24 03:59 03:59 03:59 Intake Total 657.25 / 657.25 Balance 657.25 / 657.25 Lab / Micro Data Labs: Laboratory Results - last 24 hr 07/14/24 06:06: POC Glucose 81 Radiography Diagnostic Testing: Radiology Impression Cervical Spine X-Ray 07/14/24 06:30 IMPRESSION: Fluoro was provided. Reading Location: [facility] Physical Exam Narrative General: Alert but drowsy, Oriented x3, Cooperative, No apparent distress HEENT: Atraumatic, PERRLA, EOMI, Normocephalic Oral: Moist Mucosa Neck: Supple, No JVD, c-collar in place Lungs: Diminished, Normal air movement, No rhonchi, No wheeze, No rales Cardiovascular: Regular rate, Regular Rhythm, Normal S1, Normal S2, No murmurs Abdomen: Soft, Non Tender, Non-Distended, No Hepato-splenomegaly Extremities: No edema, Capillary Refill Less than 3 Seconds Skin: Dressing CDI Musculoskeletal: No Tenderness to Palpation of Joints or Extremities Neurological: No focal neurological deficits, Motor Exam 5/5 strength throughout, Sensory exam intact to light touch and pain Psych/Mental Status: Normal Affect, Appropriate Assessment & Plan Assessment/Plan (1) Cervical myelopathy with cervical radiculopathy: (2) Status post cervical discectomy: PLAN: Plan 1. Status post C4-5 anterior cervical discectomy and fusion for cervical myelopathy and cervical radiculopathy ? Pain management per primary ? PT/OT ? DVT prophylaxis per primary ? Will hold her blood pressure medications tomorrow morning given that she is on the softer side this evening with anesthesia 2. Essential HTN/HLD ? Hold blood pressure medications ? Will monitor and make adjustments as necessary ? Resume Crestor 3. Anxiety/depression ? Stable ? Continue other home medications 4. GERD ? Stable ? Continue PPI DVT: Per primary Charges/Coding Visit Charges Office Visits / Consults: 30620 OV L3 New 30min
[2024-07-14] MEDS: traMADol 50 MG Tablet PO (17:48)
[2024-07-14] MEDS: 0.9% Saline Lock 10 ML Syringe IV (18:36)
[2024-07-14] MEDS: Morphine 4 MG/ML Syringe IV (18:36)
--- NOTE | 2024-07-14 20:16 | NURSING ---
PT AMBULATED WITH WALKER AND STANDBY ASSIST FROM ROOM ALL THE WAY AROUND THE DEPARTMENT WITH SLOW STEADY GAIT NOTED. 90% ON RA POST AMBULATION, PLACED BACK ON 2L. PT REQUESTING TORADOL WHEN DUE
[2024-07-14] MEDS: traZODone 100 MG Tablet PO (22:18)
[2024-07-14] MEDS: Oxybutynin 5 MG Tablet 2.5 MG PO (22:19)
[2024-07-14] MEDS: Senna/Docusate Sodium 1 Tablet 2 TABLET PO (22:20)
[2024-07-15] VITALS (8 sets, daily range): BP systolic 121–132; BP diastolic 53–81; PULSE 36–54; RESP 15–18; TEMP 36.3–36.6; O2SAT 93–98
[2024-07-15] MEDS: dexAMETHasone 4 MG/ML Vial IV ×3 (00:03→11:25)
--- NOTE | 2024-07-15 04:45 | RAD_ITS ---
PROCEDURE: CERV SPINE 2 OR 3 VIEWS 07/15/2024 REASON FOR EXAM: S/P CERVICAL FUSION TECHNIQUE: 2 views of the cervical spine. AP and lateral COMPARISON: 01/26/2024 FINDINGS: Cervical spine is visualized on the lateral view from the skull base to the top of T1. There are some overlying gown snaps at C7 and T1. There has been interval removal of anterior fusion plate and screws C5 through C7 with again note of interbody spacers and osseous bridging/fusion C5 through C7. There has been placement of intervertebral disc spacer C4-5 with anterior plate and screws which appears intact and anatomic without fracture or malalignment. Associated removal of anterior inferior corner osteophyte at C4. Some prevertebral soft tissue swelling is noted. Right anterolateral Shahzad drain, safety pin and cervical collar as expected. A couple of right-sided surgical clips. The visualized apices appear clear. RAD/Cerv Spine 2 or 3 Views IMPRESSION: Removal of some previous hardware with now anterior cervical disc fusion with i ntervertebral disc spacer C4-5 as above. Reading Location: [id number]
[2024-07-15] MEDS: Ketorolac 15 MG/ML Vial IV (05:20)
[2024-07-15] MEDS: Acetaminophen 500 MG Tablet 1000 MG PO (05:25)
[2024-07-15] MEDS: 0.9% Saline Lock 10 ML Syringe IV ×2 (05:28→11:25)
[2024-07-15 07:57] LABS: Hematocrit 33.5 % (37-47); Hemoglobin 11.5 g/dL (12.0-15.0); Mean Corp Hgb Conc 34.3 g/dL (32-36); Mean Corpuscular Hgb 30.6 pg (27.0-32.0); Mean Corpuscular Volume 89.1 fL (81-99); Mean Platelet Vol. 9.2 fl (6.2-12.0); Platelet Count 236 K/mm3 (150-450); RBC Distribution Width CV 12.7 % (11.6-14.6); RBC Distribution Width SD 41.8 fl (35.1-43.9); Red Blood Count 3.76 M/mm3 (4.2-5.4); White Blood Count 13.9 K/mm3 (4.4-11.0)
--- NOTE | 2024-07-15 08:11 | PCM.PN.ORT ---
Subjective Subjective POD 1 C4-5 fusion with prior hardware removal. Patient is doing very well after surgery with her pain well-tolerated. The patient has been up and walking multiple times since the surgery and uses a walker for support. The patient has walked with therapy who is cleared her for home discharge. Patient says that nursing only has had to change her dressing once. Patient denies any dysphagia. Seen with Dr. Nam. Objective Data Objective Data Vital Signs: Vital Signs Temp Pulse Resp BP Pulse Ox O2 Del Method O2 Flow Rate 97.4 F L 36 L 15 132/81 H 96 Nasal Cannula 2 07/15/24 03:23 07/15/24 04:35 07/15/24 03:24 07/15/24 03:23 07/15/24 07:18 07/15/24 07:18 07/15/24 07:18 Oxygen Flow Rate (L/min) 2 Oxygen Delivery Method Nasal Cannula Weight: 191 lb 9.307 oz Body Mass Index (BMI) 32.8 Intake & Output: Intake and Output for Last 24 Hours 07/13/24 07/14/24 07/15/24 23:59 23:59 23:59 Intake Total 767.25 / 1567.25 1100 / 1100 Balance 767.25 / 1567.25 1100 / 1100 Lab / Micro Data 07/15/24 06:41 07/15/24 06:41 Labs: Laboratory Results - last 24 hr 07/15/24 06:41: WBC 13.9 H, RBC 3.76 L, Hgb 11.5 L, Hct 33.5 L, MCV 89.1, MCH 30.6, MCHC 34.3, RDW Std Deviation 41.8, RDW Coeff of Oswaldo 12.7, Plt Count 236, MPV 9.2 Radiography Diagnostic Testing: Radiology Impression Cervical Spine X-Ray 07/14/24 06:30 IMPRESSION: Fluoro was provided. Reading Location: [facility] Cervical Spine X-Ray 07/15/24 04:45 IMPRESSION: Removal of some previous hardware with now anterior cervical disc fusion with intervertebral disc spacer C4-5 as above. Reading Location: [id number] Physical Exam Narrative Neurological exam of the upper extremities shows 5X5 power. Normal sensation across all dermatomes. Drain removed. Tegaderm and gauze applied over incision. Instructed the patient on the proper wear of the cervical collar. Const alert, oriented x3 and no apparent distress Assessment & Plan Assessment/Plan (1) Status post cervical spinal fusion: PLAN: Plan Postop day 1 C4-5 ACDF. Obtained and reviewed x-rays today which show hardware and bone graft in good position. PT/OT cleared. Patient denies any significant dysphagia. Reviewed and educated in the proper use and wear the cervical collar. Reviewed restrictions of no bending, lifting, twisting. Reviewed and educated the use of the incentive spirometer. Home meds will include tramadol, acetaminophen, meloxicam, methocarbamol, senna. OARRS reviewed. She will follow-up in the clinic in 2 weeks. Patient is in agreement.
[2024-07-15 08:48] LABS: Anion Gap 9 (5-15); BUN 15 mg/dL (4-19); BUN/Creat Ratio 12.4 RATIO (10-20); Calcium,Total 8.6 mg/dL (7.6-11.0); Carbon Dioxide 25.7 mmol/L (21.0-32.0); Chloride 91 mmol/L (98-108); Creatinine, Serum 1.19 mg/dL (0.70-1.20); EST Glomerular Filtration Rate 50 (>60); Estimated Creatinine Clearance 48.94 ml/min (50-250); Glucose 148 mg/dL (70-99); Potassium 4.1 mmol/L (3.3-5.1); Sodium Level 126 mmol/L (133-145)
--- NOTE | 2024-07-15 10:10 | CASEMGMT ---
PHILLIP BARAHONA Assessment: Face to Face with pt for initial transition planning/care coordination assessment. PHILLIP BARAHONA introduced self and role at [facility], pt voices understanding and consents to assessment. Pt is A&O x4 and answers all questions appropriately at this time. Pt lying in bed in no distress with dtr at bedside. Pt agreeable to assessment with dtr present. Care providers, pharmacy, and demographics verified/updated. Admitting Dx: ant cervical fusion Strata Score: 1 PCP:Parminder Specialists:C[facility]il ortho; Mayra, pain mgmt; Cyril chiro Preferred Pharmacy: [facility] Retail Insurance: [facility] Dual Prescription Benefit: yes LNOK: Kristina Mattson, dtr Living Arrangements: Pt lives alone in a single story home with 7 steps to enter. Pt reports typically she is I in ADL/IADLs. Pt dtr to stay with her for 2 wks. Pt denies concerns at home. Transportation: Pt drives self and denies concerns with transportation. Pt dtr will transport her until she leaves to go home in 2wks. After that, pt is aware of transportation options through her insurance. DME:Pt intends to get a FWW from a thrift store, denies need for RN CM to obtain for her. Pt states she is going to have handrails placed in her bathroom. HHC/SNF: Pt has had HH in the past but cannot recall name of agency. Pt denies SNF stays. Pt states no concerns with going home at time of dc. No therapy recommended. Pt states no further concerns/needs. CM to follow. Advised pt to ask CM if any further questions/concerns/needs arise, voices understanding. Pt Goal: Home Plan: Home Herbert FISHER CM
[2024-07-15] MEDS: Methocarbamol 500 MG Tablet 1000 MG PO (10:27)
[2024-07-15] MEDS: 0.9% Normal Saline (1000mL) 1,000 ML 500 ML IV (10:27)
[2024-07-15] MEDS: buPROPion (XL) 150 MG TABLET.XL PO (10:27)
[2024-07-15] MEDS: Senna/Docusate Sodium 1 Tablet 2 TABLET PO (10:27)
[2024-07-15] MEDS: Ensure Surgery 237 ML LIQUID PO (10:27)
[2024-07-15] MEDS: Pantoprazole Sodium 40 MG Tablet PO (10:27)
[2024-07-15] MEDS: Pramipexole Di-HCl 0.125 MG Tablet PO (10:27)
[2024-07-15] MEDS: Escitalopram Oxalate 20 MG Tablet PO (10:28)
[2024-07-15] MEDS: Meloxicam 15 MG Tablet PO (10:28)
[2024-07-15] MEDS: Oxybutynin 5 MG Tablet 2.5 MG PO (10:28)
--- NOTE | 2024-07-15 11:29 | CASEMGMT ---
Met with patient to complete BARBA form. BARBA form explained to patient who voiced understanding and signed form. Original form placed in pt?s chart and copy provided to patient. Staci Barnett, Discharge Planning Asst
--- NOTE | 2024-07-15 11:30 | CASEMGMT ---
Discharge Planning Pt report that she has started both a HC POA and Living Will but they are not completed. She would be interested in doing new ones while here. SW updated. Staci Barnett DC Planning Asst.
== END 2024-07-15 13:37 | disposition home or self-care (01) ==
LOC: SDC 10:50 → MS3 10:50
PROVIDERS: Student in an Organized Health Care Education/Training Program; Admitting Provider Orthopaedic Surgery Orthopaedic Surgery of the Spine; PCP Family Medicine; Referring Provider Orthopaedic Surgery Orthopaedic Surgery of the Spine; Visit Provider Orthopaedic Surgery Orthopaedic Surgery of the Spine
PROC: (CPT 22551; principal; 2024-07-14 07:00)
DX: M50.021 Cervical disc disorder at C4-C5 level with myelopathy (principal); M50.121 Cervical disc disorder at C4-C5 level with radiculopathy; M43.12 Spondylolisthesis, cervical region; M40.12 Other secondary kyphosis, cervical region; M48.02 Spinal stenosis, cervical region; I10 Essential (primary) hypertension; Z98.1 Arthrodesis status; G89.29 Other chronic pain; E78.00 Pure hypercholesterolemia, unspecified; K21.9 Gastro-esophageal reflux disease without esophagitis; F32.A Depression, unspecified; F41.9 Anxiety disorder, unspecified; Z79.891 Long term (current) use of opiate analgesic; Z79.899 Other long term (current) drug therapy
CPT/HCPCS: 22551; 22845; 20931; 22855; 22830; 00670; 36415; 72040; 76000; 80048; 82962; 85027; 93005; 94668; 94762; 96365; 96366; 96375; 96376; 97161; 97166; 99221; A4648; C1713; A4216; G0378; J2405; J3475

== ENCOUNTER → 2024-08-18 | Outpatient (CLI) | payer MEDICARE, MEDICAID, SELFPAY ==
--- NOTE | 2024-08-18 16:50 | RAD_ITS ---
PROCEDURE: KNEE 4 OR MORE VIEWS 08/18/2024 REASON FOR EXAM: PAIN TECHNIQUE: 4 views of the left knee COMPARISON: None FINDINGS: No fracture or traumatic malalignment. Trace knee joint effusion. Moderate narrowing in the medial compartment with tricompartmental osteophyte formation. Soft tissues are unremarkable. RAD/Knee 4 or More Views IMPRESSION: Moderate osteoarthritis of the left knee. Trace knee joint effusion. Reading Location: [facility]
== END | disposition home or self-care (01) ==
LOC: RAD 16:49
PROVIDERS: PCP Family Medicine; Referring Provider Anesthesiology; Visit Provider Anesthesiology
DX: M25.562 Pain in left knee (principal)
CPT/HCPCS: 73564

== ENCOUNTER 2024-08-20 10:00 | Outpatient (RCR) | payer MEDICARE, MEDICAID, SELFPAY ==
--- NOTE | 2024-08-05 13:36 | HP.PTEVAL ---
Patient's Visit Information Visit Information Visit Information: ITZEL VILLANUEVA is a 69 year old F referred to Physical Therapy by Dr. Tesfaye Nam MD with a diagnosis of ARTHODESIS STATUS , SPECIFIED POSTPROCEDURAL. Date of Evaluation: 08/05/24 Physical Therapist: Ney Sutton, PT, Cert MDT, OCS Visit Plan Frequency: 2x /Week Duration: 4 Weeks Plan: -S/P CERVICAL FUSION WITH REMOVAL OF HARDWARE -0# LIFTING RESTRICTION -WEAN CERVICAL ASPEN COLLAR JOSEPH PT INTERVENTIONS CERVICAL ROM ,POSTURAL EX',S STRENGTHENING ,ACTIVITY MODIFICATION ,AND POSTURE EDUCATION Subjective Subjective: This 69 y/o female presents to physical therapy with s/p cervical discectomy and s/p cervical fusion ( C4-5 ACDF, removal of hardware, exploration of fusion) on 07/14 at [facility] done by DR Nam . Patient d/c next day with aspen collar and 1 week later had bone stimulator. NO lifting or bending. Patient seen DR last week 07/29 for 2 week post op okay wean cervical brace . Medication methocarbamol and tramadol. RTD August 26. Patient had MRI prior to surgery C5-7 ACDF hardware in good position and loss of normal cervical lordosis, with reversal and kyphosis apex at C4-5 disc. C4-5 shows severe disc degeneration with osteophytes and mild instability flexion-extension views. 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 Patient had x-rays on last visit everything looked good and recommended PT. Pain has some pain UT /neck shoulder. Denies paresthesia/tingling. C/O SANCHEZ frontal . Denies dizziness and tinnitus occasional light headness. Patient sleeping okay takes sleep aid. Patient has seen chiropractor in past and pain pain management. Patient cervical fusion 2 years ago. Patient condition affects QOL and function.Patient goals to return to prior level of function. 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) : left 50# ,right 40# Balance/Special Test Scores Oswestry Neck Score: 32 Goals Goal 1:: Patient to be I with HEP cervical fusion Goal Time Frame: 4-6 Weeks Goal 2:: Patient to improve cervical ROM for function of recovery for driving Goal Time Frame: 4-6 Weeks Goal 3:: Patient to demonstrate 60% improvement with less pain and improved function Goal Time Frame: 4-6 Weeks Goal 4:: Patient to improve neck oswestry score by 5 points to improve QOL and function Goal Time Frame: 4-6 Weeks Goal 5:: Patient to improve strength peak force right shoulder by 5 -10# to improve function Goal Time Frame: 4-6 Weeks Rehabilitation Potential Physical Therapy Diagnosis: This patient underwent s/p cervical fusion 07/14 with decrease cervical ROM ,strength ,pain impairs function and ADLS thus benefit from skilled PT Rehabilitation Potential: Good Anticipated Interventions Patient/Client Instruction: Educate patient on: Condition and Plan of Care For the Purpose of:: To decrease pain, To increase ROM, To improve muscle performance and motor function, To improve ability to perform ADL's, To increase tolerance to activity/condition/position, To improve health of tissue, To decrease soft tissue restriction, To increase flexibility/ROM, To improve balance and To improve tolerance to ADL's Therapeutic Exercise to Include: Strength training, Postural training, Flexibilty training, Active ROM and Scapular Strength/Stabilization Comment: BUE For the Purpose of:: To decrease pain, To increase ROM, To improve muscle performance and motor function, To improve ability to perform ADL's, To increase tolerance to activity/condition/position, To improve ability of physical actions for home/community/work/leisure, To improve health of tissue, To decrease soft tissue restriction, To increase flexibility/ROM and To improve tolerance to ADL's Manual Therapy Techniques to Include: Soft tissue mobilization For the Purpose of:: To decrease pain and To increase ROM Text: Thank you for the opportunity to evaluate your patient. For Medicare and Medicare HMO plans, please review the plan of care and approve it. It will need to be FAXED BACK to us at [phone] for Medicare purposes. For Medicare only, by signing this I certify the plan of care. Please let me know if there are questions or concerns regarding this plan of care. Physician Signature: Date:
--- NOTE | 2024-11-22 16:33 | HP.PTDCNRP_ITS ---
Patient Information Patient Information: ITZEL VILLANUEVA was seen in my office for initial evaluation on 08/05/24. The following Plan of Care was established for this patient: POC Established Initial Frequency: 2x /Week Initial Duration: 4 Weeks Anticipated Interventions Patient/Client Instruction: Educate patient on: Condition and Plan of Care For the Purpose of:: To decrease pain, To increase ROM, To improve muscle performance and motor function, To improve ability to perform ADL's, To increase tolerance to activity/condition/position, To improve health of tissue, To de crease soft tissue restriction, To increase flexibility/ROM, To improve balance and To improve tolerance to ADL's Therapeutic Exercise to Include: Strength training, Postural training, Flexibilty training, Active ROM and Scapular Strength/Stabilization For the Purpose of:: To decrease pain, To increase ROM, To improve muscle performance and motor function, To improve ability to perform ADL's, To increase tolerance to activity/condition/position, To improve ability of physical actions for home/community/work/leisure, To improve health of tissue, To decrease soft tissue restriction, To increase flexibility/ROM and To improve tolerance to ADL's Manual Therapy Techniques to Include: Soft tissue mobilization For the Purpose of:: To decrease pain and To increase ROM Last Seen Last Seen: This patient was last seen in our office . Pertinent comments regarding their Physical therapy will appear below: Patient seen for PT for cervical fusion and d/c to HEP At this point I will be discontinuing this patient from physical therapy. I would be happy to see this patient again in the future if found appropriate by the physician. Thank you! Ney Sutton, PT, Cert MDT, OCS Balance/Gait/Functional tests Balance/Special Test Scores Oswestry Neck Score: 32
== END 2024-08-20 19:00 | disposition home or self-care (01) ==
LOC: PT 10:00
PROVIDERS: PCP Family Medicine; Referring Provider Orthopaedic Surgery Orthopaedic Surgery of the Spine; Visit Provider Orthopaedic Surgery Orthopaedic Surgery of the Spine
DX: Z98.1 Arthrodesis status (principal); Z98.890 Other specified postprocedural states
CPT/HCPCS: 97110; 97162